=== PATIENT | female | born 1990 | race Caucasian/White ===

== ENCOUNTER 2020-01-14 11:11 | Emergency (ER) | payer OTHER, SELFPAY ==
[2020-01-14 11:33] VITALS: PULSE 108; RESP 18; TEMP 37.1; O2SAT 96; BMI 33.0
--- NOTE | 2020-01-14 11:36 | ED_ITS ---
HPI - Allergic Reaction General Chief complaint: General Medical Stated complaint: hives,postive covid Time Seen by Provider: 01/14/20 11:27 Source: patient Mode of arrival: ambulatory Limitations: no limitations History of Present Illness HPI narrative: 29-year-old female who recently tested positive for COVID on Saturday presenting to the ED with a rash on her face, bilateral arms and hands and feet that is very itchy. Reports she took Benadryl prior to arrival and no symptomatic relief. Denies any new detergents, lotions, medications or any new exposures that she knows about. 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 Related Data Previous Rx's Medication Instructions Recorded diphenhydramine HCl [Benadryl 50 mg PO TID PRN #10 tab 01/14/20 Allergy] famotidine [Pepcid] 20 mg PO BID #10 tab 01/14/20 loratadine [Claritin] 10 mg PO DAILY PRN #10 tab 01/14/20 prednisone 40 mg PO DAILY 5 Days #10 tab 01/14/20 Allergies Allergy/AdvReac Type Severity Reaction Status Date / Time amoxicillin Allergy Hives Verified 01/14/20 11:38 Review of Systems Review of Systems: Constitutional : No Fever, No Chills , no body aches, no recent illness Head/Face: No facial swelling, No facial redness ENT/Mouth : No oral/throat swelling, No Hoarseness, No Swallowing Difficulty Eyes: No Eye Pain, No Swelling, No Redness Cardiovascular : No Chest Pain, No SOB, No palpitations Respiratory : No Cough, No Sputum, No Wheezing, No Smoke Exposure, No Dyspnea Gastrointestinal : No Nausea, No Vomiting, No Diarrhea, No abdominal Pain Genitourinary : No Dysuria, No Urinary Frequency, No Hematuria Musculoskeletal : No joint pain, No Myalgias, No Joint Swelling Skin : No Skin Lesions, + rash Neuro : No Weakness, No Numbness, No Headache, No dizziness, No tingling Psych : No Anxiety/Panic, No Depression Heme/Lymph: No Bruising, No Lymphadenopathy Endocrine : No Polyuria, No Polydipsia Denies changes in lotions or detergents. Denies new medications or any changes in medications. Denies drainage from rash. Denies any recent sick contacts or recent travel. Yes all other systems are reviewed and are negative [facility] Past Medical History Attestation statement: The following information was validated with the patient. Medical History No known health problems Social History Social History Advance Directives: No Advance Directives Information Provided: Yes Physical Exam Vital Signs: Vital Signs: vital signs have been reviewed as normal and appeared to be correct. Blood pressure normal. Heart rate normal. Respiration rate normal. Temperature normal. Oxygen saturation normal. Appearance: Alert. Oriented X3. No acute distress. Head: Normal external exam. Normocephalic. Atraumatic. No Kuo signs noted. No raccoon eyes noted Eyes: PERRLA. EOMI. Conjunctiva and sclera normal. Eyelids normal. ENT: EAC normal. TM's Normal. Pharynx normal. Uvula midline. Moist mucous membranes. No trismus noted. No drooling noted. No muffled voice noted. Neck: Normal inspection. Neck supple. FROM. No adenopathy. Thyroid Normal. No meningeal signs. No neck mass noted. CVS: Normal heart rate and rhythm. Heart sound normal. No murmurs noted. Pulses normal throughout. Respiratory: No respiratory distress. Painless inspiration. Breath sounds normal. No wheezes/rales/rhonchi noted. Chest nontender. No accessory muscle usage noted or decreased air movement noted. Abdomen: Soft and nontender. Bowel sounds normal in all 4 quadrants. No distention noted. No organomegaly noted. No visible injury noted. Back: No CVA tenderness. Full range of motion noted. Skin: Erythematous and well-demarcated blanching rash noted to face, bilateral arms, abdomen and bilateral feet. No signs of infection or drainage noted. Otherwise the rest of the Skin is warm and dry. Normal skin color. Normal skin turgor. No lesions/lacerations noted. Extremities: No lower extremity edema. Extremities exhibit normal range of motion. Extremities nontender. Neuro: Oriented X 3. No motor deficit. No sensory deficit. Reflexes normal. Course Course Course Narrative: will DC home with symptomatic treatment for possible allergic reaction and retest for for COVID at this time and instructions return if any new or worsening symptoms to follow-up with primary care provider. Patient understands agrees the plan. MDM - Allergic Reaction Medical Records Attestation: I reviewed the patient's medical records. Discharge Plan Discharge Clinical Impression: Rash associated with COVID-19 Patient Disposition: Home, Self-Care Instructions: Acute Rash (ED) Additional Instructions: Based on your symptoms and history we have sent a COVID-19. Although your RESULT IS PENDING at this time. RESULTS should return within 72 hours. At this time you will be contacted with either NEGATIVE OR POSITIVE results. -Please wait until we contact you for your results. At this time you will be okay for discharge. Please plan for self quarantine for up to 14 days. Do not expose yourself to others. You may not go to work. If testing does come back negative you may return to activities as long as you are no longer having any symptoms for at least 3 days. Please continue to follow cold instructions and wash your hands frequently. You may take Tylenol as directed on the bottle for pain or fever. Patient seen in the emergency department on 01/14/2020 and should be excused from work until negative test results AND until 72 hours without any symptoms AND at least 10 days have passed since symptoms first appeared or since last exposure to COVID-19 positive patient CDC Guidelines for home isolation: - Stay away from others - WEAR A MASK if you are sick AND STAY HOME - Cover your mouth and nose with a tissue when you cough or sneeze. Dispose of tissues in a lined trash can and wash your hands immediately with soap and water for at least 20 seconds. If soap and water are not available, clean hands with alcohol-based hand mill washer that contains at least 60% alcohol. - Clean your hands often with soap and water for at least 20 seconds - Avoid touching your eyes, nose and mouth with unwashed hands - Do not share dishes, drinking glasses, cups, eating utensils, towels, or bedding with other people in your home. After using these items, wash them th oroughly with soap and water or put in the drug safety data management specialist. - Clean high-touch surfaces in your isolation area ( sick room and bathroom) every day; let a caregiver clean and disinfect high-touch surfaces in other areas of the home. Clean the area or item with soap and water or another detergent if it is dirty. Then, use a household disinfectant. - Limit contact with pets and animals: If you must care for a pet, wash your hands before and after interacting with them). Prescriptions: New prednisone 20 mg tablet 40 mg PO DAILY 5 Days Qty: 10 RF: 0 loratadine [Claritin] 10 mg tablet 10 mg PO DAILY PRN (Reason: allergy symptoms) Qty: 10 RF: 0 famotidine [Pepcid] 20 mg tablet 20 mg PO BID Qty: 10 RF: 0 diphenhydramine HCl [Benadryl Allergy] 25 mg tablet 50 mg PO TID PRN (Reason: allergic reaction) Qty: 10 RF: 0 Referrals: Lynn Castro MD [Primary Care Provider] - 2 days Stand Alone Forms: Work/School Release Print Language: Surinamese
[2020-01-14 13:41] LABS: Influenza A PCR NEGATIVE (Negative); Influenza B PCR NEGATIVE (Negative); Resp Syncy Virus RNA Qual PCR NEGATIVE (Negative); SARS COV2 PCR INHOUSE POSITIVE (Negative)
== END 2020-01-14 11:53 | disposition home or self-care (01) ==
PROVIDERS: Physician Assistant Medical; Emergency Provider Emergency Medicine; PCP Internal Medicine
DX: U07.1 COVID-19 (principal); R21 Rash and other nonspecific skin eruption
CPT/HCPCS: 0241U; 99283

== ENCOUNTER 2021-03-31 09:31 | Outpatient (REF) | payer OTHER, SELFPAY ==
[2021-03-31 10:02] LABS: COVID-19 Test Negative (Negative); IDNOW Serial# 16C4AD1C
== END 2021-03-31 09:32 | disposition home or self-care (01) ==
LOC: HO.LAB 09:31
PROVIDERS: Visit Provider Internal Medicine
DX: Z20.822 Contact with and (suspected) exposure to COVID-19 (principal)
CPT/HCPCS: 87635; C9803

== ENCOUNTER 2023-08-02 08:24 | Outpatient (AMB) | payer OTHER, SELFPAY ==
--- NOTE | 2023-08-02 08:24 | AM.OFFWIN_ITS ---
Intake Vital Signs 08/02/23 09:10 Height 5 ft Weight 166 lb BMI 32.4 BP 120/72 Blood Pressure Location Lt brachial Position Sitting Respiration 81 H Pulse Source Pulse Oximeter Temp 97.0 F Temp Source Temporal Artery Scan Pulse Oximetry (%) 96 Oxygen Delivery Method Room Air Intake Visit Reasons: EP ?Sinus Infection Intake Note: Pt is here today for possible sinus infection, pt c/o if Symptoms started 1 week ago Patient Tobacco Use Status: Never used Tobacco Allergies amoxicillin Allergy (Verified 08/02/23 09:37) Hives Medication List - Last Reconciled 08/02/23 by Caro Lopez CNP No Known Home Meds Do you need a note to return to daycare/school/sports/work: No HPI HPI Comments History of Present Illness Details 32-year-old female presents [facility] with complaint of sinus pressure, headache, nasal congestion, bilateral ear pressure, Rt > Lt that has lasted over 8 days. She denies fever, chills, CP, SOB, wheezing, dizziness, abdominal pain, nausea or vomiting, changes in bowels or bladder. She does report greenish-yellow nasal discharge and seasonal allergies. [facility] Medical History No known health problems Social History Patient Tobacco Use Status: Never used Tobacco Review of Systems Const All systems reviewed & are unremarkable except as noted in HPI and below Physical Exam Vital Signs: Last Vital Signs Temp 97.0 F 08/02/23 09:10 Resp 81 H 08/02/23 09:10 BP 120/72 08/02/23 09:10 Pulse Ox 96 08/02/23 09:10 Oxygen Delivery Method Room Air 08/02/23 09:10 BMI result Body Mass Index 32.4 Const General: no acute distress and other (ill appearing, ) Nutritional Appearance: well nourished Orientation/consciousness: patient oriented x3 Limitations: no limitations HEENT Ears: hearing grossly normal bilaterally and TM's normal bilaterally General nose exam: Abnormal mucous membranes and turbinates present erythematous bilateral and Nasal discharge present purulent Face and sinus: Yes sinus tenderness Mouth: moist mucous membranes Resp Effort & Inspection: normal respiratory effort, no respiratory distress and not tachypneic Auscultation: clear to auscultation bilaterally, no rhonchi and no wheezes Cardio Rate: regular rate Rhythm: regular rhythm Heart sounds: S1 normal heart sound present and S2 normal heart sound present GI Palpation (GI): Soft to palpation Auscultation: normal bowel sounds Skin General skin exam: no rashes or lesions noted and turgor normal Neuro General: patient oriented x3 Psych Appearance: well kempt Mental Status: mental status grossly normal Affect: normal affect Attitude: cooperative Assessment & Plan Assessment & Plan (1) Sinusitis: Code(s): J32.9 - Chronic sinusitis, unspecified Qualifiers: Chronicity: acute Recurrence: non-recurrent Sinusitis location: maxillary Qualified Code(s): J01.00 - Acute maxillary sinusitis, unspecified Plan: 32-year-old female seen today for symptoms consistent of sinusitis Although she has a documented allergy to amoxicillin she reports tolerating it well in the past, but not that additive in the Augmentin. We will treat with amoxicillin 500 mg p.o. b.i.d. x7 days, encourage to take with food to reduce GI upset Encouraged drink plenty of fluid and remain hydrated alternate Acetaminophen and ibuprofen for general body aches, and or headache. Over the counter nasal saline spray Return to office for worsening or unresolved symptoms. Medications: New amoxicillin 500 mg PO BID 7 days 14 tabs 0RF J32.9 - Chronic sinusitis, unspecified Coding Level of Care Code Est Pt Level 3 (62934) Diagnoses Acute non-recurrent maxillary sinusitis J01.00 Chronicity: acute Recurrence: non-recurrent Sinusitis location: maxillary
[2023-08-02 09:10] VITALS: BP 120/72; RESP 81; TEMP 36.1; O2SAT 96; BMI 32.4
== END 2023-08-02 09:49 | disposition home or self-care (01) ==
PROVIDERS: Visit Provider Nurse Practitioner Acute Care
DX: J01.00 Acute maxillary sinusitis, unspecified (principal)
CPT/HCPCS: 99213

== ENCOUNTER 2023-10-03 10:53 | Outpatient (AMB) | payer OTHER, SELFPAY ==
[2023-10-03 11:46] VITALS: BP 132/84; PULSE 84; TEMP 37.3; O2SAT 98; BMI 33.4
--- NOTE | 2023-10-03 11:46 | MHC.OFFWIV ---
Intake Vital Signs 10/03/23 11:46 Height 5 ft Weight 171 lb BMI 33.4 BP 132/84 Blood Pressure Location Rt brachial Position Sitting Pulse 84 Pulse Source Pulse Oximeter Temp 99.1 F Temp Source Oral Pulse Oximetry (%) 98 Oxygen Delivery Method Room Air Intake Visit Reasons: Ear pain, Sore throat, 99.9 fever, body aches Intake Note: pt c/o ear pain, fever, sore throat, body aches. Started Saturday Patient Tobacco Use Status: Never used Tobacco Allergies amoxicillin Allergy (Verified 10/03/23 11:54) Hives Do you need a note to return to daycare/school/sports/work: No HPI Ear pain, Sore throat, 99.9 fever, body aches HPI Details This note is constructed using voice recognition software. While every effort has been made to ensure accuracy, traffic workforce representative errors may have been included. The patient is a 32 year old female who presents to the clinic today with fever, body aches, pharyngitis, and ear pain since Saturday. She denies cough, shortness of breath, exposure to any known sick parties. [facility] Medical History No known health problems Social History Patient Tobacco Use Status: Never used Tobacco Review of Systems Const All systems reviewed & are unremarkable except as noted in HPI and below Physical Exam Vital Signs: Last Vital Signs Temp 99.1 F 10/03/23 11:46 Pulse 84 10/03/23 11:46 BP 132/84 10/03/23 11:46 Pulse Ox 98 10/03/23 11:46 Oxygen Delivery Method Room Air 10/03/23 11:46 BMI result Body Mass Index 33.4 Const General: cooperative, healthy appearing, comfortable and no acute distress Orientation/consciousness: patient oriented x3 Limitations: no limitations HEENT Head: Yes normal to inspection Ears: hearing grossly normal bilaterally, external ears normal and TM's normal bilaterally General nose exam: Normal external nose present, Normal nares present and No nasal discharge present Face and sinus: Yes normal facial exam and Yes sinuses nontender Mouth: Normal oral and palatal mucosa present and moist mucous membranes Throat: Yes tonsils normal, Yes uvula midline and Yes posterior oropharynx abnormal (Erythema) Eyes General: appearance normal, both eyes and all related structures Neck Neck: Yes normal visual inspection Resp Effort & Inspection: normal respiratory effort, able to speak in complete sentences, Actively coughing, no respiratory distress, not tachypneic, no tripod positioning and no use of accessory muscles Auscultation: clear to auscultation bilaterally Cardio Jugular venous distension: no JVD Rate: regular rate Rhythm: regular rhythm Heart sounds: S1 normal heart sound present, S2 normal heart sound present, no click, no gallops, no murmurs and no rubs Skin General skin exam: no rashes or lesions noted, elasticity normal and turgor normal Neuro General: patient oriented x3 Extrem General: Yes normal to inspection and Yes no clubbing, cyanosis or edema Results AMB Rapid Strep AMB Rapid Strep Negative Last Edit by Monster Castillo CMA on 10/03/23 12:37 Results Reviewed Results Reviewed: Laboratory Last Values Strep Scn Rapid Clinic Negative 10/03/23 12:36 Assessment & Plan Assessment & Plan (1) URI (upper respiratory infection): Code(s): J06.9 - Acute upper respiratory infection, unspecified Qualifiers: URI type: unspecified URI Qualified Code(s): J06.9 - Acute upper respiratory infection, unspecified Plan: In office rapid strep negative. Likely viral etiology, viral panel swab obtained today. Advised patient to remain home today from work, letter provided for remaining home. Quarantine measures reviewed per CDC guidelines. Advised acetaminophen and NSAIDs for symptomatic management as well as warmth water gargles. Advised follow up with worsening symptoms or failure to resolve. Plan See above for full details and plan. Orders: Orders AMB Rapid Strep Screen Today Z13.9 - Encounter for screening, unspecified SARS-CoV2/FLU/RSV Today J06.9 - Acute upper respiratory infection, unspecified Coding Level of Care Code Est Pt Level 3 (57157) Diagnoses Upper respiratory tract infection, unspecified type J06.9 URI type: unspecified URI
== END 2023-10-03 12:20 | disposition home or self-care (01) ==
PROVIDERS: Visit Provider Registered Nurse
DX: J02.9 Acute pharyngitis, unspecified (principal)
CPT/HCPCS: 87880; 99213

== ENCOUNTER 2023-10-03 12:10 | Outpatient (REF) | payer OTHER, SELFPAY ==
[2023-10-03 14:23] LABS: Influenza A PCR NEGATIVE (Negative); Influenza B PCR NEGATIVE (Negative); Resp Syncy Virus RNA Qual PCR NEGATIVE (Negative); SARS COV2 PCR INHOUSE NEGATIVE (Negative)
== END 2023-10-03 12:11 | disposition home or self-care (01) ==
LOC: HO.LNP 12:10
PROVIDERS: Visit Provider Registered Nurse
DX: J06.9 Acute upper respiratory infection, unspecified (principal)
CPT/HCPCS: 0241U